=== PATIENT | male | born 1980 | race Caucasian/White ===

== ENCOUNTER 2021-01-29 18:02 | Emergency (ER) | payer BC ==
--- NOTE | 2021-01-29 18:53 | EDM.PDOC ---
ED HPI GENERAL MEDICAL PROBLEM - General Chief Complaint: Chest Pain Stated Complaint: COUGH CHEST PAINS WEAK Time Seen by Provider: 01/29/21 18:34 Source of Information: Reports: Patient, RN Notes Reviewed History Limitations: Reports: No Limitations - History of Present Illness INITIAL COMMENTS - FREE TEXT/NARRATIVE: Patient is a 40-year-old male presenting to the emergency department with complaints of chest pain, cough, shortness of breath, and body aches. Symptoms began on Thursday. Describes a burning pain in his chest with coughing and deep breathing. Any documented fever. He has had no vomiting or diarrhea. He has been using [id number] Tylenol, ibuprofen, DayQuil, and NyQuil for symptom relief. Denies any chronic underlying medical conditions. Oxygen saturations on arrival were 100% on room air. Patient was not vaccinated for Covid Middle Chest Pain Score (Numeric/FACES): 6 - Related Data Allergies Allergy/AdvReac Type Severity Reaction Status Date / Time No Known Allergies Allergy Verified 01/29/21 18:14 Home Meds: Home Meds Zolpidem Tartrate [Ambien] 0 mg PO BEDTIME 01/29/21 [History] lisinopriL [Lisinopril] 0 mg PO DAILY 01/29/21 [History] Past Medical History Cardiovascular History: Reports: Hypertension Social & Family History - Tobacco Use Tobacco Use Status *Q: Never Tobacco User - Caffeine Use Caffeine Use: Reports: Coffee, Soda - Recreational Drug Use Recreational Drug Use: No ED ROS GENERAL - Review of Systems Review Of Systems: Comprehensive ROS is negative, except as noted in HPI. ED EXAM, GENERAL - Physical Exam Exam: See Below Exam Limited By: No Limitations General Appearance: Alert, WD/WN, No Apparent Distress Respiratory/Chest: No Respiratory Distress, Lungs Clear, Normal Breath Sounds, No Accessory Muscle Use, Chest Non-Tender Cardiovascular: Normal Peripheral Pulses, Regular Rate, Rhythm, No Edema, No Gallop, No JVD, No Murmur, No Rub GI/Abdominal: Normal Bowel Sounds, Soft, Non-Tender, No Organomegaly, No Distention, No Abnormal Bruit, No Mass Neurological: Alert, Oriented, CN II-XII Intact, Normal Cognition, Normal Gait, Normal Reflexes, No Motor/Sensory Deficits Psychiatric: Normal Affect, Normal Mood Skin Exam: Warm, Dry, Intact, Normal Color, No Rash #1 Interpretation EKG Date: 01/29/21 Time: 18:09 Rhythm: NSR Rate (Beats/Min): 62 [place]: Normal P-Wave: Present QRS: Normal ST-T: Normal QT: Normal Course - Vital Signs Last Recorded V/S: Last Vital Signs Temp 97.7 F 01/29/21 18:12 Pulse 67 01/29/21 18:12 Resp 18 01/29/21 18:12 BP 158/112 H 01/29/21 18:12 Pulse Ox 100 01/29/21 18:12 - Orders/Labs/Meds Labs: Laboratory Tests 01/29/21 01/29/21 01/29/21 Range/Units 18:25 18:55 18:55 WBC 4.75 (4.23-9.07) K/mm3 RBC 5.02 (4.63-6.08) M/mm3 Hgb 15.5 (13.7-17.5) gm/dl Hct 43.9 (40.1-51.0) % MCV 87.5 (79.0-92.2) fl MCH 30.9 (25.7-32.2) pg MCHC 35.3 (32.2-35.5) g/dl RDW Std Deviation 39.0 (35.1-43.9) fL Plt Count 190 (163-337) K/mm3 MPV 9.5 (9.4-12.3) fl Neut % (Auto) 64.1 (34.0-67.9) % Lymph % (Auto) 26.1 (21.8-53.1) % [place] % (Auto) 8.8 (5.3-12.2) % Eos % (Auto) 0.6 L (0.8-7.0) Baso % (Auto) 0.2 (0.1-1.2) % Neut # (Auto) 3.04 (1.78-5.38) K/mm3 Lymph # (Auto) 1.24 L (1.32-3.57) K/mm3 [place] # (Auto) 0.42 (0.30-0.82) K/mm3 Eos # (Auto) 0.03 L (0.04-0.54) K/mm3 Baso # (Auto) 0.01 (0.01-0.08) K/mm3 Sodium 140 (136-145) mEq/L Potassium 4.0 (3.5-5.1) mEq/L Chloride 107 (98-107) mEq/L Carbon Dioxide 26 (21-32) mEq/L Anion Gap 11.0 (5-15) BUN 15 (7-18) mg/dL Creatinine 1.1 (0.7-1.3) mg/dL Est Cr Clr Drug Dosing 96.02 mL/min Estimated GFR (MDRD) > 60 (>60) mL/min BUN/Creatinine Ratio 13.6 L (14-18) Glucose 94 (70-99) mg/dL Calcium 8.6 (8.5-10.1) mg/dL Total Bilirubin 0.4 (0.2-1.0) mg/dL AST 24 (15-37) U/L ALT 34 (16-63) U/L Alkaline Phosphatase 87 (46-116) U/L Troponin I < 0.017 (0.00-0.056) ng/mL Total Protein 6.9 (6.4-8.2) g/dl Albumin 3.6 (3.4-5.0) g/dl Globulin 3.3 gm/dL Albumin/Globulin Ratio 1.1 (1-2) SARS-CoV-2 RNA (MATT) Positive H (NEGATIVE) - Re-Assessments/Exams Free Text/Narrative Re-Assessment/Exam: Patient is a 40-year-old male presenting to the emergency department with complaints of cough, chest pain, shortness of breath. Exam is unremarkable. Oxygen saturation on room air. Have ordered chest x-ray, blood work, Covid test. 01/29/21 19:43 Hematology is unremarkable. Chest x-ray shows a slight parenchymal density within the lower lungs which could be a minimal areas of early pneumonia. Oxygen saturations have maintained 88 to 100% on room air. EKG shows no acute abnormalities. Patient is Covid positive. He'll be discharged home. Discussed symptomatic treatment and return precautions. Discharge instructions as documented. Departure - Departure Time of Disposition: 19:43 Disposition: Home, Self-Care 01 Condition: Good Clinical Impression: COVID-19 - Discharge Information *PRESCRIPTION DRUG MONITORING PROGRAM REVIEWED*: No *COPY OF PRESCRIPTION DRUG MONITORING REPORT IN PATIENT BRUNO: No Referrals: PCP,None [Primary Care Provider] - Forms: ED Department Discharge Additional Instructions: You were seen in the emergency department today for cough, shortness of breath, chest pain. Work-up included blood work, chest x-ray, EKG, and Covid test. Results of your work-up did show that you're Covid positive. Remainder was normal. Recommend that you go home and rest. Use Tylenol and ibuprofen as needed for fever discomfort. Ensure that you're taking an adequate amount of fluid. Recommend purchasing a home pulse oximeter to monitor your oxygen saturations. If you're maintaining a saturation below 90% or you experience any new or worsening symptoms of concern, please not hesitate to return to the emergency department for reevaluation. Sepsis Event Note (ED) - Evaluation Sepsis Screening Result: No Definite Risk - Focused Exam Vital Signs: Vital Signs Temp Pulse Resp BP Pulse Ox 01/29/21 18:12 97.7 F 67 18 158/112 H 100
--- NOTE | 2021-01-29 19:34 | CR ---
Chest: Portable view of the chest was obtained. Comparison: No prior chest imaging is available. Slight parenchymal density is noted within the lower lungs on both sides. Upper lungs are clear. Heart size and mediastinum are normal. Bony structures show nothing acute. Impression: 1. Slight parenchymal density within both lower lungs. Minimal areas of early pneumonia are a possibility. Please correlate with the patient's symptoms. Diagnostic code #3
== END 2021-01-29 20:20 | disposition home or self-care (01) ==
LOC: JD.ED 18:02
DX: U07.1 COVID-19 (principal); I10 Essential (primary) hypertension; Z79.899 Other long term (current) drug therapy
CPT/HCPCS: 36415; 71045; 71045-26; 80053; 84484; 85025; 93005; 99285-25; U0002